=== PATIENT | male | born 1970 | race Caucasian/White ===

== ENCOUNTER → 2021-01-12 | Outpatient (CLI) | payer BC, OTHER | LOC: KOH-I 09:10 | DX: R10.2 Pelvic and perineal pain (principal); R36.1 Hematospermia | CPT/HCPCS: 72192 ==

== ENCOUNTER 2021-07-09 15:41 | Emergency (ER) | payer BC ==
[2021-07-09 16:02] LABS: HEMOGLOBIN 16.5 gm/dl (14.0-17.5); RED BLOOD COUNT 5.17 M/UL (4.20-5.50); WHITE BLOOD COUNT 6.8 K/UL (4.5-11.0)
[2021-07-09 16:26] LABS: BUN/CREATININE RATIO 19 (0-10)
[2021-07-09] MEDS ORDERED: CARAFATE1 GM PO (20:48)
== END 2021-07-09 21:04 | disposition home or self-care (01) ==
LOC: ER1 15:41
PROVIDERS: Emergency Medicine
DX: R06.02 Shortness of breath (principal); R07.89 Other chest pain; Z90.89 Acquired absence of other organs; F17.220 Nicotine dependence, chewing tobacco, uncomplicated; Z20.822 Contact with and (suspected) exposure to COVID-19
CPT/HCPCS: 71045; 80053; 82550; 82553; 83874; 84484; 85025; 93005; 99285; U0002

== ENCOUNTER → 2022-02-10 | Outpatient (CLI) | payer BC ==
[~2022-02-10] MED LIST: CARAFATE1 GM PO
[2022-02-10 14:24] LABS: HEMOGLOBIN 16.2 gm/dl (14.0-17.5); RED BLOOD COUNT 5.05 M/UL (4.20-5.50); WHITE BLOOD COUNT 6.8 K/UL (4.5-11.0)
[2022-02-10 15:09] LABS: BUN/CREATININE RATIO 24 (0-10)
== END ==
LOC: LAB 08:36
PROVIDERS: Physician Assistant Medical
DX: R53.83 Other fatigue (principal); E55.9 Vitamin D deficiency, unspecified
CPT/HCPCS: 80053; 84439; 84443; 85025